=== PATIENT | female | born 1940 | race Caucasian/White ===

== ENCOUNTER → 2016-06-24 | Outpatient (CLI) | payer MEDICARE ==
[~2016-06-24] MED LIST: AMLO5TAB2 PO; AMOX1TAB12 PO; ASPI325T4 PO; ATEN50TA41 PO; CELLWISE PO; CETI10TA24 PO; DICL100G8 TP; ECON15CR TP; IMIP50TA3 PO; MELA5TAB PO; MORP15TA PO; OMEG500C3 PO; OXYC5CAP4 PO; SPIR25TA3 PO; TIZA4TAB PO; [UNRECOGNIZED DRUG - OTHER] PO; [UNRECOGNIZED DRUG - OTHER] PO; [UNRECOGNIZED DRUG - OTHER] PO; [UNRECOGNIZED DRUG - OTHER] PO
== END | disposition home or self-care (01) ==
LOC: CFH 16:10
PROVIDERS: ATTEND Family Medicine
DX: I87.2 Venous insufficiency (chronic) (peripheral) (principal); M79.605 Pain in left leg; M79.89 Other specified soft tissue disorders; Z86.718 Personal history of other venous thrombosis and embolism

== ENCOUNTER 2017-09-05 09:55 | Inpatient (IN) | payer MEDICARE ==
[~2017-09-05] VITALS: Ht 157.5 cm; Wt 60.2 kg
[~2017-09-05 09:55] MED LIST changes: +ASPI325T17 PO; -ASPI325T4 PO; +DICL100G19 TP; -DICL100G8 TP; -MELA5TAB PO; +MELA5TAB19 PO; +OXYC5CAP2 PO; -OXYC5CAP4 PO
[2017-09-05 11:36] LABS: BASOPHILS # (AUTO) 0.05 x10^3/uL (0-0.1); BASOPHILS % (AUTO) 0 % (0-1); EOSINOPHILS # (AUTO) 0.04 x10^3/uL (0-0.4); EOSINOPHILS % (AUTO) 0 % (1-7); LYMPHOCYTES # (AUTO) 1.29 x10^3/uL (1-3.4); LYMPHOCYTES % (AUTO) 8 % (22-44); MD NO; MEAN CORPUSCULAR HEMOGLOBIN 34.2 pg (27.0-34.8); MEAN CORPUSCULAR HGB CONC 34.3 g/dL (32.4-35.8); MEAN CORPUSCULAR VOLUME 99.9 fL (80-100); MEAN PLATELET VOLUME 8.6 fL (7.4-10.4); MONOCYTES % (AUTO) 7 % (2-9); NEUTROPHILS # (AUTO) 12.82 x10^3/uL (1.8-6.8); NEUTROPHILS % (AUTO) 84 % (42-75); PLATELET COUNT 276 x10^3/uL (130-400); RED CELL DISTRIBUTION WIDTH 13.7 % (9.6-15.2)
[2017-09-05 11:50] LABS: ALBUMIN 3.7 g/dL (3.4-5.0); ANION GAP 5 mmol/L (5-15); CALCIUM 8.9 mg/dL (8.5-10.1); CHLORIDE 105 mmol/L (98-107); CREATININE 1.13 mg/dL (0.55-1.02)
[2017-09-05] MEDS ORDERED: SODIUM CHLORIDE 0.9% 1,000 ML IV ONE (12:30)
[2017-09-05 12:31] LABS: FREE T4 (FREE THYROXINE) 0.95 ng/dL (0.76-1.46); THYROID STIMULATING HORMONE 2.07 mIU/L (0.358-3.740)
[2017-09-05] MEDS ORDERED: OMNIPAQUE 350 MG/ML, 100ML BOTTLE ONE (12:41)
[2017-09-05] MEDS ORDERED: AMPICILLIN/SULBACTAM 3 GM in SODIUM CHLORIDE 0.9% 100 ML IV ONE (14:30)
[2017-09-05] MEDS ORDERED: DEXAMETHASONE 4 MG/ML, 1ML IVPush ONE (14:30)
[2017-09-05] MEDS ORDERED: DEXAMETHASONE 4 MG/ML, 5ML ONE (14:38)
[2017-09-05] MEDS ORDERED: DICL100G19 TD (15:00)
[2017-09-05] MEDS ORDERED: FLORIFY PO (15:00)
[2017-09-05] MEDS ORDERED: TIZA4TAB PO (15:00)
[2017-09-05] MEDS ORDERED: ACET650S21 PO (15:00)
[2017-09-05] MEDS ORDERED: [UNRECOGNIZED DRUG - OTHER] PO (15:00)
[2017-09-05] MEDS ORDERED: MORPHINE SULFATE 4 MG/ML, 1ML IVPush PRN (15:30)
[2017-09-05] MEDS ORDERED: ONDANSETRON ODT 4 MG PO ONE (15:30)
[2017-09-05] MEDS ORDERED: AMPICILLIN/SULBACTAM 3 GM in SODIUM CHLORIDE 0.9% 100 ML IV SCH (16:00)
[2017-09-05] MEDS ORDERED: hydrALAzine 20 MG/ML, 1ML IVPush PRN (16:00)
[2017-09-05] MEDS ORDERED: ACETAMINOPHEN 325 MG TABLET PO PRN (16:00)
[2017-09-05] MEDS ORDERED: ACETAMINOPHEN 650 MG/20.3 ML UDC PO PRN (16:00)
[2017-09-05] MEDS ORDERED: DIPHENHYDRAMINE 50 MG/ML, 1ML IVPush PRN (16:30)
[2017-09-05 16:34] LABS: INTERNATIONAL NORMALIZED RATIO 1.15 (0.93-1.1); PROTHROMBIN TIME 11.8 Seconds (9.6-11.5)
[2017-09-05] MEDS ORDERED: MORPHINE SULFATE 4 MG/ML, 1ML ONE (16:40)
[2017-09-05] MEDS ORDERED: DIPHENHYDRAMINE 50 MG/ML, 1ML ONE (16:40)
[2017-09-05] MEDS ORDERED: PIPERACILLIN/TAZO 2.25 GM in SODIUM CHLORIDE 0.9% 50 ML IV SCH (17:00)
[2017-09-05 19:43] VITALS: BP 111/62
[2017-09-05] MEDS: SODIUM CHLORIDE 0.9% 1,000 ML IV SCH (19:55)
[2017-09-05] MEDS: CLINDAMYCIN PMX 300MG/50ML 50 ML IV SCH (20:08)
[2017-09-05] MEDS ORDERED: morphine SULFATE 10 MG/ML, 1ML IVPush PRN (20:43)
[2017-09-05] MEDS ORDERED: IMIPRAMINE 50 MG TABLET PO SCH (21:00)
[2017-09-05] MEDS: IMIPRAMINE 25 MG TABLET PO SCH (21:09)
[2017-09-05] MEDS: ATENOLOL 50 MG TABLET PO SCH (21:10)
[2017-09-05] MEDS: DEXAMETHASONE 10 MG in SODIUM CHLORIDE 0.9% 50 ML IV SCH (23:00)
[2017-09-06] MEDS: CLINDAMYCIN PMX 300MG/50ML 50 ML IV SCH ×3 (02:12→15:52)
[2017-09-06 02:33] VITALS: BP 100/58
[2017-09-06 05:35] LABS: BASOPHILS # (AUTO) 0.02 x10^3/uL (0-0.1); BASOPHILS % (AUTO) 0 % (0-1); EOSINOPHILS % (AUTO) 0 % (1-7); LYMPHOCYTES # (AUTO) 0.84 x10^3/uL (1-3.4); LYMPHOCYTES % (AUTO) 5 % (22-44); MD NO; MEAN CORPUSCULAR HEMOGLOBIN 33.5 pg (27.0-34.8); MEAN CORPUSCULAR HGB CONC 33.2 g/dL (32.4-35.8); MEAN CORPUSCULAR VOLUME 101.1 fL (80-100); MONOCYTES # (AUTO) 0.21 x10^3/uL (0.2-0.8); MONOCYTES % (AUTO) 1 % (2-9); NEUTROPHILS # (AUTO) 14.82 x10^3/uL (1.8-6.8); NEUTROPHILS % (AUTO) 93 % (42-75); PLATELET COUNT 239 x10^3/uL (130-400); RED BLOOD COUNT 3.89 x10^6/uL (3.82-5.3)
[2017-09-06 05:41] LABS: CHLORIDE 112 mmol/L (98-107)
[2017-09-06 05:45] LABS: CALCIUM 8.4 mg/dL (8.5-10.1); CREATININE 0.89 mg/dL (0.55-1.02)
[2017-09-06 06:07] LABS: ANION GAP 9 mmol/L (5-15)
[2017-09-06] MEDS: DEXAMETHASONE 10 MG in SODIUM CHLORIDE 0.9% 50 ML IV SCH ×3 (06:39→23:03)
[2017-09-06 07:54] VITALS: BP 107/58
[2017-09-06] MEDS: AMLODIPINE 5 MG TABLET PO SCH (10:57)
[2017-09-06] MEDS: ATENOLOL 50 MG TABLET PO SCH ×2 (10:57→21:02)
[2017-09-06] MEDS: ASPIRIN 325 MG TABLET PO SCH (10:57)
[2017-09-06] MEDS: CETIRIZINE 10 MG TABLET PO SCH (10:58)
[2017-09-06] MEDS: SODIUM CHLORIDE 0.9% 1,000 ML IV SCH ×2 (12:45→23:05)
[2017-09-06 14:06] VITALS: BP 114/60
[2017-09-06 20:41] VITALS: BP 118/63
[2017-09-06] MEDS: IMIPRAMINE 25 MG TABLET PO SCH (21:02)
[2017-09-07 00:56] VITALS: BP 126/69
[2017-09-07] MEDS: CLINDAMYCIN PMX 300MG/50ML 50 ML IV SCH ×4 (01:07→20:22)
[2017-09-07 05:47] LABS: ALBUMIN 2.9 g/dL (3.4-5.0); ANION GAP 8 mmol/L (5-15); CALCIUM 8.2 mg/dL (8.5-10.1); CHLORIDE 114 mmol/L (98-107); CREATININE 0.88 mg/dL (0.55-1.02); MEAN CORPUSCULAR HEMOGLOBIN 33.4 pg (27.0-34.8); MEAN CORPUSCULAR HGB CONC 33.4 g/dL (32.4-35.8); MEAN CORPUSCULAR VOLUME 100.1 fL (80-100); MEAN PLATELET VOLUME 8.9 fL (7.4-10.4); PLATELET COUNT 255 x10^3/uL (130-400); RED BLOOD COUNT 3.62 x10^6/uL (3.82-5.3); RED CELL DISTRIBUTION WIDTH 14.6 % (9.6-15.2)
[2017-09-07] MEDS: DEXAMETHASONE 10 MG in SODIUM CHLORIDE 0.9% 50 ML IV SCH (05:58)
[2017-09-07 06:08] LABS: BASOPHILS % (AUTO) 0 % (0-1); EOSINOPHILS % (AUTO) 0 % (1-7); LYMPHOCYTES # (AUTO) 0.87 x10^3/uL (1-3.4); LYMPHOCYTES % (AUTO) 4 % (22-44); MD SCAN; MONOCYTES # (AUTO) 0.59 x10^3/uL (0.2-0.8); MONOCYTES % (AUTO) 3 % (2-9); NEUTROPHILS # (AUTO) 18.42 x10^3/uL (1.8-6.8); NEUTROPHILS % (AUTO) 93 % (42-75)
[2017-09-07 06:16] LABS: FOLATE LEVEL > 20.0 ng/mL (3.1-17.5)
[2017-09-07 07:31] VITALS: BP 115/67
[2017-09-07] MEDS: ASPIRIN 325 MG TABLET PO SCH (08:09)
[2017-09-07] MEDS: AMLODIPINE 5 MG TABLET PO SCH (08:09)
[2017-09-07] MEDS: CETIRIZINE 10 MG TABLET PO SCH (08:10)
[2017-09-07] MEDS: ATENOLOL 50 MG TABLET PO SCH ×2 (08:10→20:23)
[2017-09-07] MEDS: SODIUM CHLORIDE 0.9% 1,000 ML IV SCH ×2 (11:12→20:22)
[2017-09-07 13:39] VITALS: BP 108/58
[2017-09-07] MEDS: DEXAMETHASONE INTENSOL 1 MG/ML ORAL SOL PO SCH ×2 (15:19→22:50)
[2017-09-07 20:09] VITALS: BP 126/62
[2017-09-07] MEDS: IMIPRAMINE 25 MG TABLET PO SCH (20:22)
[2017-09-08 01:23] VITALS: BP 113/67
[2017-09-08] MEDS: CLINDAMYCIN PMX 300MG/50ML 50 ML IV SCH ×3 (02:08→13:57)
[2017-09-08 05:12] LABS: ALBUMIN 2.7 g/dL (3.4-5.0); ANION GAP 9 mmol/L (5-15); CALCIUM 8.2 mg/dL (8.5-10.1); CHLORIDE 115 mmol/L (98-107); CREATININE 0.79 mg/dL (0.55-1.02)
[2017-09-08 05:18] LABS: BASOPHILS % (AUTO) 0 % (0-1); EOSINOPHILS % (AUTO) 0 % (1-7); LYMPHOCYTES # (AUTO) 0.71 x10^3/uL (1-3.4); LYMPHOCYTES % (AUTO) 5 % (22-44); MD NO; MEAN CORPUSCULAR HEMOGLOBIN 34.3 pg (27.0-34.8); MEAN CORPUSCULAR HGB CONC 33.9 g/dL (32.4-35.8); MEAN CORPUSCULAR VOLUME 101.1 fL (80-100); MEAN PLATELET VOLUME 8.9 fL (7.4-10.4); MONOCYTES # (AUTO) 0.58 x10^3/uL (0.2-0.8); MONOCYTES % (AUTO) 5 % (2-9); NEUTROPHILS # (AUTO) 11.75 x10^3/uL (1.8-6.8); NEUTROPHILS % (AUTO) 90 % (42-75); PLATELET COUNT 250 x10^3/uL (130-400)
[2017-09-08] MEDS: DEXAMETHASONE INTENSOL 1 MG/ML ORAL SOL PO SCH ×2 (06:16→13:57)
[2017-09-08] MEDS: SODIUM CHLORIDE 0.9% 1,000 ML IV SCH ×2 (06:16→12:38)
[2017-09-08 06:59] VITALS: BP 123/62
[2017-09-08] MEDS: CETIRIZINE 10 MG TABLET PO SCH (08:03)
[2017-09-08] MEDS: ASPIRIN 325 MG TABLET PO SCH (08:03)
[2017-09-08] MEDS: AMLODIPINE 5 MG TABLET PO SCH (08:03)
[2017-09-08] MEDS: ATENOLOL 50 MG TABLET PO SCH (08:04)
[2017-09-08 15:04] VITALS: BP 124/66
[2017-09-08] MEDS ORDERED: METH4TAB2 PO (15:39)
[2017-09-08] MEDS ORDERED: CLIN300C8 PO (15:44)
== END 2017-09-08 16:36 | disposition home health service (06) | DRG 604 ==
LOC: ED 14:25 → EDIP 14:26 → ED 14:33 → 3NE 17:14
PROVIDERS: ADMIT Hospitalist; ATTEND Hospitalist
PROC: 0CJS8ZZ Inspection of Larynx, Via Natural or Artificial Opening Endoscopic (ICD-10-PCS; principal; 2017-09-05)
DX: S10.83XA Contusion of other specified part of neck, initial encounter (principal); N17.0 Acute kidney failure with tubular necrosis; W01.0XXA Fall on same level from slipping, tripping and stumbling without subsequent striking against object, initial encounter; R22.1 Localized swelling, mass and lump, neck; R13.10 Dysphagia, unspecified; I10 Essential (primary) hypertension; D75.89 Other specified diseases of blood and blood-forming organs; Z96.643 Presence of artificial hip joint, bilateral; M19.90 Unspecified osteoarthritis, unspecified site; M43.8X4 Other specified deforming dorsopathies, thoracic region; J02.9 Acute pharyngitis, unspecified; K59.09 Other constipation; M81.0 Age-related osteoporosis without current pathological fracture; Z79.82 Long term (current) use of aspirin; Z80.0 Family history of malignant neoplasm of digestive organs; Z87.891 Personal history of nicotine dependence; Z90.710 Acquired absence of both cervix and uterus; Z98.1 Arthrodesis status; Z90.89 Acquired absence of other organs; Y93.89 Activity, other specified; Y92.89 Other specified places as the place of occurrence of the external cause; Y99.8 Other external cause status; Z88.2 Allergy status to sulfonamides; Z88.6 Allergy status to analgesic agent; Z88.8 Allergy status to other drugs, medicaments and biological substances; Z79.899 Other long term (current) drug therapy
CPT/HCPCS: 36415; 70450; 70491; 72125; 74230; 80048; 82040; 82607; 82746; 84439; 84443; 85025; 85610; 87040; 96365; 96366; 96375; J0295; J1100; Q9967; J1200; J2270; J7030